=== PATIENT | male | born 1955 | race Two or more races ===

== ENCOUNTER → 2017-01-31 | Outpatient (CLI) | payer OTHER ==
--- NOTE | 2017-01-31 15:43 | RAD ---
Right shoulder, 3 views, 01/31/2017: History: Fall, pain No acute fracture or dislocation is identified. There are small calcifications in the soft tissues along the lateral aspect of the greater tuberosity which are probably of tendinous origin. IMPRESSION: 1. No acute bony abnormality is detected. 2. Mild rotator cuff tendinitis
== END | disposition home or self-care (01) ==
LOC: RAD 14:44
PROVIDERS: ATTEND Internal Medicine
DX: S49.91XA Unspecified injury of right shoulder and upper arm, initial encounter (principal); X58.XXXA Exposure to other specified factors, initial encounter; Y93.89 Activity, other specified; Y92.89 Other specified places as the place of occurrence of the external cause; Y99.8 Other external cause status; M75.91 Shoulder lesion, unspecified, right shoulder
CPT/HCPCS: 73030